=== PATIENT | male | born 1995 | race African-American/Black ===

== ENCOUNTER 2024-07-26 13:11 | Emergency (ER) | payer SELFPAY ==
[~2024-07-26] VITALS: Ht 185.4 cm; Wt 59.4 kg
[2024-07-26 13:15] VITALS: O2SAT 99
[2024-07-26 13:32] VITALS: BP 121/70; PULSE 78; RESP 18; TEMP 36.6; O2SAT 100
[2024-07-26] MEDS ORDERED: ACETAMINOPHEN 325MG TABLET PO ONE (14:30)
[2024-07-27] MEDS ORDERED: IBUP-2030 MT (13:02)
[2024-07-27] MEDS ORDERED: METH-653 MT (13:02)
== END 2024-07-26 14:45 | disposition left against medical advice (07) ==
LOC: ER 13:11
DX: R51.9 Headache, unspecified (principal); R68.84 Jaw pain; M54.50 Low back pain, unspecified; M25.562 Pain in left knee; Z88.0 Allergy status to penicillin
CPT/HCPCS: 99281

== ENCOUNTER 2024-07-27 12:23 | Emergency (ER) | payer SELFPAY ==
[~2024-07-27] VITALS: Ht 185.4 cm; Wt 60.0 kg
[2024-07-27 12:43] VITALS: O2SAT 99
[2024-07-27] MEDS: ACETAMINOPHEN 500MG TABLET PO ONE (12:58)
[2024-07-27] MEDS ORDERED: METH-653 MT (13:02)
[2024-07-27] MEDS ORDERED: IBUP-2030 MT (13:02)
[2024-07-27 13:25] VITALS: BP 113/67; PULSE 78; RESP 16; TEMP 36.7; O2SAT 99
== END 2024-07-27 13:25 | disposition home or self-care (01) ==
LOC: ER 12:23
DX: M25.532 Pain in left wrist (principal); M25.562 Pain in left knee; M79.10 Myalgia, unspecified site; F12.90 Cannabis use, unspecified, uncomplicated; Z79.899 Other long term (current) drug therapy; Z88.0 Allergy status to penicillin; V89.2XXA Person injured in unspecified motor-vehicle accident, traffic, initial encounter; Y93.89 Activity, other specified; Y92.89 Other specified places as the place of occurrence of the external cause; Y99.8 Other external cause status
CPT/HCPCS: 99283